=== PATIENT | female | born 1955 | race Caucasian/White ===

== ENCOUNTER 2017-02-18 06:20 | Day surgery (SDC) | payer OTHER ==
[2017-02-17 11:04] LABS: HEMATOCRIT 40.3 % (36.0-48.0); HEMOGLOBIN 13.8 g/dL (12-16); MCH 32.8 pg (26.0-34.0); MCHC 34.2 g/dL (31.0-37.0); MCV 95.7 fL (80.0-100.0); MEAN PLATELET VOLUME 9.7 fL (7.4-10.4); RBC 4.21 10x6/uL (4.00-5.40); RDW 13.3 % (11.5-14.5); WBC 4.8 10x3/uL (4.8-10.8)
[~2017-02-18] VITALS: Ht 170.2 cm; Wt 94.3 kg
[2017-02-18 06:18] VITALS: BP 119/68; Ht 170.2 cm; Wt 94.3 kg
[~2017-02-18 06:20] MED LIST: ASPIRIN EC81 M1 PO; BENICAR HCT 40-1 TA1 PO; MAG-OXIDE400 MG PO; PREVACID30 MG PO; VITAMIN D31000 UNIT PO
--- NOTE | 2017-02-18 10:45 | NUR ---
HERE FOR DC. UP TO BATHROOM, VOIDED WITHOUT DIFFICULTY. DISCHARGED HOME VIA WC.
--- NOTE | 2017-02-25 10:20 | OP ---
PATIENT NAME: RENNY BRANCH MEDICAL RECORD: [id number] :51 LOCATION:D.FORMERLY [facility] ADMISSION DATE: SURGEON: RAMANA MARTINEZ DPM DATE OF OPERATION: 02/18/2017 PREOPERATIVE DIAGNOSES: 1. Posterior calcaneal spurring, left foot with intratendinous calcifications of the Achilles tendon. 2. Achilles tendon disruption, left foot. POSTOPERATIVE DIAGNOSES: 1. Posterior calcaneal spurring, left foot with intratendinous calcifications of the Achilles tendon. 2. Achilles tendon disruption, left foot. PROCEDURE: 1. Gastroc recession, left leg. 2. Resection of calcaneal spurring and intratendinous calcifications, left posterior heel. 3. Repair of Achilles tendon utilizing suture bridge technique. HEMOSTASIS: Left thigh tourniquet at 350 mmHg. ANESTHESIA: General anesthesia with a preoperative popliteal block per the anesthesia department PATHOLOGY: Specimen sent for gross micro identification. PREOPERATIVE DETAILS: The patient was taken to the operating room. Following induction of general anesthesia, the patient was placed on the operating table in a prone position. The left extremity was then prepped and draped in the usual aseptic technique followed by exsanguination of extremity and inflation of tourniquet. PROCEDURE NUMBER 1: Gastroc recession of left leg. A 15-blade was used to create a 3.5-4 cm linear incision over the posterior aspect of the gastroc aponeurosis. The incision deepened down through subcutaneous tissue being sure to avoid all vital structures. Dissection was carried down to the peritenon where a linear incision was made and the peritenon was freed from the posterior aspect of the gastroc aponeurosis. With the foot held in dorsiflexion, an incision was made through the gastroc aponeurosis allowing adequate dorsiflexion of the ankle joint. The wound was flushed and the skin was closed with skin anatoliy PROCEDURE NUMBER 2: Resection of posterior calcaneal spurring with removal of intratendinous calcifications. incision was made over the posterior medial aspect of the left heel. The incision was deepened down through subcutaneous tissue being sure to avoid all vital structures. Dissection was carried down to the Achilles tendon and posterior heel. The Achilles tendon was freed from the posterior aspect of the calcaneus. There was noted to be significant intratendinous calcifications as well as a significantly enlarged spurring of the posterior calcaneus. A sagittal saw was used to resect the spurring and to debulk the posterior heel as well as sharp dissection to remove the intratendinous calcifications in the Achilles tendon. OPERATIVE REPORT [id number] RENNY BRANCH PROCEDURE NUMBER 3: Achilles tendon repair, left foot. Utilizing a suture bridge technique with 4 anchors, the Achilles tendon was repaired back to the calcaneus in a very rigid fashion. Following the repair, the foot was put in dorsiflexion noting that there was significant strength to the repair. At this time, the wound was flushed. The deep tissue was repaired as well as the peritenon with 2-0 Vicryl, the subcutaneous tissue with 4-0 Rapide and the skin was closed with 4-0 Rapide in a subcuticular technique followed by Dermabond, Adaptic, 4 x 4 and Conform were used to dress the wounds followed by application of a modified Garcia compression dressing. Tourniquet was deflated. POSTOPERATIVE DETAILS: The patient tolerated the procedures well and left the OR with vital signs stable and vascular status at preoperative levels. The patient was transported to recovery per anesthesia in stable condition. TRANSINT:[id number] Voice Confirmation ID: [id number] DOCUMENT ID: [id number] RAMANA MARTINEZ DPM at 1020 CC: [id number] DICTATION DATE: 02/18/17 0835 POSTDOCTORAL FELLOW: 02/18/[address] [facility] 02/18/17 [id number] [place] [address]
== END 2017-02-18 10:45 | disposition home or self-care (01) ==
LOC: D.OPS 06:20 → D.PAN 07:30 → D.OPS 07:30
PROVIDERS: Anesthesiology
DX: M77.32 Calcaneal spur, left foot (principal); M65.872 Other synovitis and tenosynovitis, left ankle and foot; S86.012A Strain of left Achilles tendon, initial encounter

== ENCOUNTER 2018-03-31 05:00 | Day surgery (SDC) | payer OTHER ==
[2018-03-30 13:13] LABS: HEMOGLOBIN 13.7 g/dL (12-16); MCH 33.3 pg (26.0-34.0); MCHC 35.1 g/dL (31.0-37.0); MCV 94.9 fL (80.0-100.0); MEAN PLATELET VOLUME 9.7 fL (7.4-10.4); RBC 4.11 10x6/uL (4.00-5.40); RDW 12.8 % (11.5-14.5)
[~2018-03-31] VITALS: Ht 170.2 cm; Wt 95.3 kg
--- NOTE | ~2018-03-31 | OP ---
PATIENT NAME: RENNY BRANCH MEDICAL RECORD: [id number] :51 LOCATION:D.OPS ADMISSION DATE: SURGEON: RAMANA MARTINEZ DPM DATE OF OPERATION: 03/31/2018 PREOPERATIVE DIAGNOSES: Right posterior calcaneus spur with Achilles tendon disruption. POSTOPERATIVE DIAGNOSES: Right posterior calcaneus spur with Achilles tendon disruption. PROCEDURES: 1. Gastroc recession, right leg. 2. Calcaneal spur removal, right foot. 3. Achilles tendon repair, right foot. ANESTHESIA: General with preoperative popliteal block per the anesthesia department. HEMOSTASIS: Right thigh tourniquet at 350 mmHg. PREOPERATIVE DETAILS: The patient was taken to the OR and following induction of general anesthesia, the patient was placed on the operating table in a prone position. The right extremity was then prepped and draped in the usual aseptic technique followed by exsanguination and inflation of tourniquet. PROCEDURE #1: Gastroc recession, right leg. A 15-blade was used to create a 3.5-cm linear incision over the posterior aspect of the gastroc aponeurosis of the right leg. The incision was deepened down bluntly through subcutaneous tissue being sure to avoid the sural nerve and vein. Dissection was carried down bluntly to the peritenon. A linear incision was made and the aponeurosis was freed. With the foot in dorsiflexion, a cut was made through the aponeurosis from medial to lateral allowing adequate dorsiflexion of the ankle joint. The wound was then flushed and the skin was closed with skin anatoliy. PROCEDURE #2: Calcaneal spur removal, right foot. A 15-blade was used to create a linear incision over the posterior aspect of the right foot. The incision deepened down through subcutaneous tissue to the Achilles tendon, which was freed from surrounding structures. There was noted to be significant spurring within the tendon as well as some degeneration of the insertion. The tendon was freed from the posterior aspect of the calcaneus and a sagittal saw was used to resect the enlarged spurring. A good smooth surface was obtained. The wound was flushed. PROCEDURE #3: Achilles tendon repair, right foot. Utilizing the suture bridge technique with 4 implants in the calcaneus and FiberWire, the Achilles tendon was reapproximated to the calcaneus and excellent rigid fixation allowing ankle joint dorsiflexion. Following the repair, the wound was flushed. The peritenon was closed with 2-0 Vicryl. The subcutaneous tissue was reapproximated with 4-0 Rapide and the skin was closed with 4-0 Rapide in a subcuticular technique followed by Dermabond, Adaptic, 4 x 4 and Conform were used to dress the wound followed by application of modified Garcia compression dressing and the tourniquet was deflated. POSTOPERATIVE DETAILS: The patient tolerated the procedure well and left the OR OPERATIVE REPORT [id number] RENNY BRANCH with vital signs stable and vascular status at preoperative levels. The patient was transported to recovery per anesthesia in stable condition. TRANSINT:[id number] Voice Confirmation ID: [id number] DOCUMENT ID: [id number] RAMANA MARTINEZ DPM at 0918 CC: [id number] DICTATION DATE: 03/31/18 0838 DENTAL RESIDENT: 03/31/18 1241 [facility] 03/31/[address] [address]
[2018-03-31 05:26] VITALS: BP 109/58; Ht 170.2 cm; Wt 95.3 kg
== END 2018-03-31 12:15 | disposition home or self-care (01) ==
LOC: D.OPS 05:00 → D.PAN 07:00 → D.OPS 07:00
PROVIDERS: Anesthesiology
DX: M77.31 Calcaneal spur, right foot (principal); S86.011A Strain of right Achilles tendon, initial encounter; X58.XXXA Exposure to other specified factors, initial encounter; Z01.812 Encounter for preprocedural laboratory examination